=== PATIENT | male | born 1960 | race Caucasian/White ===

== ENCOUNTER 2021-02-24 16:53 | Inpatient (IN) | payer BC ==
[2021-02-24] MEDS ORDERED: cefTRIAXone 2 GM Vial IVPUSH ONE (17:07)
[2021-02-24] MEDS ORDERED: Sodium Chloride 0.9% 1,000 ML IV SCH ×2 (17:15→21:00)
[2021-02-24] MEDS ORDERED: Acetaminophen/HYDROcodone 325-5 MG Tab PO ONE (17:16)
--- NOTE | 2021-02-24 17:34 | EDM.PDOC ---
ED HPI GENERAL MEDICAL PROBLEM - General Chief Complaint: Fever Stated Complaint: WEAK Time Seen by Provider: 02/24/21 17:00 Source of Information: Reports: Patient History Limitations: Reports: No Limitations - History of Present Illness INITIAL COMMENTS - FREE TEXT/NARRATIVE: Pt. presents to ER with numerous complaints, including nausea, vomiting, diarrhea, fatigue, weakness and pain/erythema to R lower extremity. He is transported to ER via ambulance. 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 He lives in [place]. Pt. states that the GI symptoms started on Tuesday. He denies any melena, hematochezia, or hematemesis. Denies any abdominal pain, but complains of diffuse abdominal cramping. He has been chills, was noted to be febrile by EMS. Denies any cough, chest congestion, sore throat or rhinorrhea. Pt. states that he noticed he had discomfort in his R lower extremity, and is unable to walk without significant increase in discomfort. Pt. indicates that he is "healthy" and denies any PMH. 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 Onset: Today Onset Date: 02/24/21 Location: Reports: Abdomen, Generalized Right Leg Pain Score (Numeric/FACES): 7 - Related Data Allergies Allergy/AdvReac Type Severity Reaction Status Date / Time No Known Allergies Allergy Verified 02/24/21 17:07 Home Meds: Home Meds . [No Known Home Meds] 02/24/21 [History] Past Medical History - Past Surgical History Musculoskeletal Surgical History: Reports: Other (See Below) Other Musculoskeletal Surgeries/Procedures:: Right wrist surgery Social & Family History - Tobacco Use Tobacco Use Status *Q: Former Tobacco User Used Tobacco, but Quit: Yes Month/Year Tobacco Last Used: unsure ED ROS GENERAL - Review of Systems Review Of Systems: See Below Constitutional: Reports: Fever, Chills, Malaise, Weakness, Fatigue HEENT: Reports: No Symptoms Respiratory: Reports: No Symptoms. Denies: Shortness of Breath, Cough Cardiovascular: Reports: No Symptoms Endocrine: Reports: No Symptoms GI/Abdominal: Reports: Nausea, Vomiting : Reports: No Symptoms Musculoskeletal: Reports: No Symptoms Skin: Reports: Other (significant erythema to R lower extremity.) Neurological: Reports: No Symptoms Psychiatric: Reports: No Symptoms Hematologic/Lymphatic: Reports: No Symptoms Immunologic: Reports: No Symptoms ED EXAM, GENERAL - Physical Exam Exam: See Below Exam Limited By: No Limitations General Appearance: Alert, WD/WN, No Apparent Distress Throat/Mouth: Normal Lips, Normal Voice, No Airway Compromise Head: Atraumatic, Normocephalic Neck: Normal Inspection, Supple, Non-Tender, Full Range of Motion Respiratory/Chest: No Respiratory Distress, Lungs Clear, No Accessory Muscle Use, Chest Non-Tender Cardiovascular: Normal Peripheral Pulses, Regular Rate, Rhythm, No JVD, No Murmur Peripheral Pulses: 3+: Dorsalis Pedis (L), Dorsalis Pedis (R), 4+: Radial (L) GI/Abdominal: Normal Bowel Sounds, Soft, Non-Tender, No Distention, No Mass, Other (Male) Exam: Deferred Rectal (Males) Exam: Deferred Back Exam: Normal Inspection Extremities: Other (diffuse erythema noted to R lower extremity with minimal edema to the area) Neurological: Alert, Oriented, CN II-XII Intact, Normal Cognition, Normal Gait, Normal Reflexes, No Motor/Sensory Deficits Psychiatric: Normal Affect, Normal Mood Skin Exam: Warm, Dry, Intact Lymphatic: No Adenopathy #1 Interpretation Rhythm: NSR Jud: Normal P-Wave: Present QRS: Normal ST-T: Normal QT: Normal Course - Vital Signs Last Recorded V/S: Last Vital Signs Temp 37.9 C 02/24/21 17:00 Pulse 77 02/24/21 17:00 Resp 18 02/24/21 17:00 BP 111/46 L 02/24/21 19:40 Pulse Ox 96 02/24/21 19:40 - Orders/Labs/Meds Orders: Active Orders 24 hr Category Date Time Status CULTURE BLOOD [BC] Stat Lab 02/24/21 17:18 Received CULTURE BLOOD [BC] Stat Lab 02/24/21 17:23 Received LACTIC ACID [CHEM] Routine Lab 02/24/21 20:08 Received Sodium Chloride 0.9% [Normal Saline] 1,000 ml Med 02/24/21 17:15 Active IV ASDIRECTED Sodium Chloride 0.9% [Saline Flush] Med 02/24/21 17:01 Active 10 ml FLUSH ASDIRECTED PRN VANCOmycin 2 GM/400 ML 2 gm Med 02/24/21 19:57 Active Premix Bag 1 bag IV STAT Blood Culture x2 Reflex Set [OM.PC] Stat Oth 02/24/21 17:03 Ordered Peripheral IV Insertion Adult [OM.PC] Routine Oth 02/24/21 17:03 Ordered Medication Orders Enoxaparin Sodium (Enoxaparin 120 Mg/0.8 Ml Syringe) 120 mg SUBCUT Q12H BRIAN Last Admin: 02/24/21 20:27 Dose: 120 mg Documented by: BATACAR Sodium Chloride (Normal Saline) 1,000 mls @ 1,000 mls/hr IV ASDIRECTED BRIAN Last Admin: 02/24/21 17:42 Dose: 1,000 mls/hr Documented by: YASMINACAR Vancomycin HCl 2 gm/ Premix 400 mls @ 200 mls/hr IV STAT ONE Stop: 02/24/21 21:56 Last Admin: 02/24/21 20:16 Dose: 200 mls/hr Documented by: YASMINACAR Sodium Chloride (Sodium Chloride 0.9% 10 Ml Syringe) 10 ml FLUSH ASDIRECTED PRN PRN Reason: Keep Vein Open Labs: Laboratory Tests 02/24/21 02/24/21 02/24/21 Range/Units 17:18 17:18 17:18 WBC 11.6 H (4.0-10.0) x10^3/uL RBC 4.07 L (4.5-6.0) x10^6/uL Hgb 14.9 (14.0-18.0) g/dL Hct 41.5 (40.0-52.0) % MCV 102.0 H (78.0-93.0) fL MCH 36.6 H (26.0-32.0) pg MCHC 35.9 (32.0-36.0) g/dL RDW Coeff of Mitzi 13.8 (10.0-15.0) % Plt Count 109 L (130-400) x10^3/uL Immature Gran % (Auto) 1.40 H (0.00-0.43) % Neut % (Auto) 84.0 H (50.0-80.0) % Lymph % (Auto) 5.8 L (25.0-50.0) % [place] % (Auto) 8.7 (2.0-11.0) % Eos % (Auto) 0.0 (0.0-4.0) % Baso % (Auto) 0.1 L (0.2-1.2) % Neut # (Auto) 9.7 H (1.8-7.7) x10^3/uL Lymph # (Auto) 0.7 L (1.0-4.8) x10^3/uL [place] # (Auto) 1.0 H (0.0-0.8) x10^3/uL Eos # (Auto) 0.0 (0.0-0.5) x10^3/uL Baso # (Auto) 0.0 (0.0-0.2) x10^3/uL Immature Gran # (Auto) 0.16 H (0.00-0.07) x10^3/uL PT 14.1 H (9.9-12.5) SEC INR 1.3 L (2.0-3.5) APTT (25.6-32.8) SEC D-Dimer, Quantitative (<=0.58) mg/LFEU Sodium 134 L (136-145) mmol/L Potassium 3.2 L (3.5-5.1) mmol/L Chloride 98 (98-107) mmol/L Carbon Dioxide 25 (21-32) mmol/L Anion Gap 14.2 (5-15) mmol/L BUN 16 (7-18) mg/dL Creatinine 1.1 (0.70-1.30) mg/dL Est Cr Clr Drug Dosing 80.71 mL/min Estimated GFR (MDRD) > 60 Glucose 138 H (70-99) mg/dL Lactic Acid (0.4-2.0) mmol/L Calcium 8.4 L (8.5-10.1) mg/dL Corrected Calcium 9.5 (8.5-10.1) mg/dL Phosphorus 2.5 L (2.6-4.7) mg/dL Magnesium 2.3 (1.8-2.4) mg/dL Total Bilirubin 3.3 H (0.2-1.0) mg/dL AST 192 H (15-37) U/L ALT 93 H (16-63) U/L Alkaline Phosphatase 94 (46-116) U/L Troponin I High Sens 37 (<=76) ng/L C-Reactive Protein 46.5 H (<=0.9) mg/dL NT-Pro-B Natriuret Pep 1146 H (<=125) pg/mL Total Protein 7.1 (6.4-8.2) g/dL Albumin 2.6 L (3.4-5.0) g/dL Globulin 4.5 Albumin/Globulin Ratio 0.58 Urine Color (YELLOW) Urine Appearance (CLEAR) Urine pH (5.0-8.0) Ur Specific [place] Urine Protein (NEGATIVE) mg/dL Urine Glucose (UA) (NEGATIVE) mg/dL Urine Ketones (NEGATIVE) mg/dL Urine Occult Blood (NEGATIVE) Urine Nitrite (NEGATIVE) Urine Bilirubin (NEGATIVE) Urine Urobilinogen (0.2) EU/dL Ur Leukocyte Esterase (NEGATIVE) Urine RBC (NOT SEEN) /HPF Urine WBC (NOT SEEN) /HPF Ur Squamous Epith Cells (NOT SEEN) /HPF Urine Bacteria (NOT SEEN) /HPF Urine Mucus (NOT SEEN) /LPF Ethyl Alcohol < 3 (0-3) mg/dL SARS CoV-2 RNA Rapid CARINE (NEGATIVE) 02/24/21 02/24/21 02/24/21 Range/Units 17:18 17:18 17:18 WBC (4.0-10.0) x10^3/uL RBC (4.5-6.0) x10^6/uL Hgb (14.0-18.0) g/dL Hct (40.0-52.0) % MCV (78.0-93.0) fL MCH (26.0-32.0) pg MCHC (32.0-36.0) g/dL RDW Coeff of Mitzi (10.0-15.0) % Plt Count (130-400) x10^3/uL Immature Gran % (Auto) (0.00-0.43) % Neut % (Auto) (50.0-80.0) % Lymph % (Auto) (25.0-50.0) % [place] % (Auto) (2.0-11.0) % Eos % (Auto) (0.0-4.0) % Baso % (Auto) (0.2-1.2) % Neut # (Auto) (1.8-7.7) x10^3/uL Lymph # (Auto) (1.0-4.8) x10^3/uL [place] # (Auto) (0.0-0.8) x10^3/uL Eos # (Auto) (0.0-0.5) x10^3/uL Baso # (Auto) (0.0-0.2) x10^3/uL Immature Gran # (Auto) (0.00-0.07) x10^3/uL PT (9.9-12.5) SEC INR (2.0-3.5) APTT 27.6 (25.6-32.8) SEC D-Dimer, Quantitative 2.83 H (<=0.58) mg/LFEU Sodium (136-145) mmol/L Potassium (3.5-5.1) mmol/L Chloride (98-107) mmol/L Carbon Dioxide (21-32) mmol/L Anion Gap (5-15) mmol/L BUN (7-18) mg/dL Creatinine (0.70-1.30) mg/dL Est Cr Clr Drug Dosing mL/min Estimated GFR (MDRD) Glucose (70-99) mg/dL Lactic Acid 2.8 H* (0.4-2.0) mmol/L Calcium (8.5-10.1) mg/dL Corrected Calcium (8.5-10.1) mg/dL Phosphorus (2.6-4.7) mg/dL Magnesium (1.8-2.4) mg/dL Total Bilirubin (0.2-1.0) mg/dL AST (15-37) U/L ALT (16-63) U/L Alkaline Phosphatase (46-116) U/L Troponin I High Sens (<=76) ng/L C-Reactive Protein (<=0.9) mg/dL NT-Pro-B Natriuret Pep (<=125) pg/mL Total Protein (6.4-8.2) g/dL Albumin (3.4-5.0) g/dL Globulin Albumin/Globulin Ratio Urine Color (YELLOW) Urine Appearance (CLEAR) Urine pH (5.0-8.0) Ur Specific [place] Urine Protein (NEGATIVE) mg/dL Urine Glucose (UA) (NEGATIVE) mg/dL Urine Ketones (NEGATIVE) mg/dL Urine Occult Blood (NEGATIVE) Urine Nitrite (NEGATIVE) Urine Bilirubin (NEGATIVE) Urine Urobilinogen (0.2) EU/dL Ur Leukocyte Esterase (NEGATIVE) Urine RBC (NOT SEEN) /HPF Urine WBC (NOT SEEN) /HPF Ur Squamous Epith Cells (NOT SEEN) /HPF Urine Bacteria (NOT SEEN) /HPF Urine Mucus (NOT SEEN) /LPF Ethyl Alcohol (0-3) mg/dL SARS CoV-2 RNA Rapid CARINE (NEGATIVE) 02/24/21 02/24/21 Range/Units 17:23 18:18 WBC (4.0-10.0) x10^3/uL RBC (4.5-6.0) x10^6/uL Hgb (14.0-18.0) g/dL Hct (40.0-52.0) % MCV (78.0-93.0) fL MCH (26.0-32.0) pg MCHC (32.0-36.0) g/dL RDW Coeff of Mitzi (10.0-15.0) % Plt Count (130-400) x10^3/uL Immature Gran % (Auto) (0.00-0.43) % Neut % (Auto) (50.0-80.0) % Lymph % (Auto) (25.0-50.0) % [place] % (Auto) (2.0-11.0) % Eos % (Auto) (0.0-4.0) % Baso % (Auto) (0.2-1.2) % Neut # (Auto) (1.8-7.7) x10^3/uL Lymph # (Auto) (1.0-4.8) x10^3/uL [place] # (Auto) (0.0-0.8) x10^3/uL Eos # (Auto) (0.0-0.5) x10^3/uL Baso # (Auto) (0.0-0.2) x10^3/uL Immature Gran # (Auto) (0.00-0.07) x10^3/uL PT (9.9-12.5) SEC INR (2.0-3.5) APTT (25.6-32.8) SEC D-Dimer, Quantitative (<=0.58) mg/LFEU Sodium (136-145) mmol/L Potassium (3.5-5.1) mmol/L Chloride (98-107) mmol/L Carbon Dioxide (21-32) mmol/L Anion Gap (5-15) mmol/L BUN (7-18) mg/dL Creatinine (0.70-1.30) mg/dL Est Cr Clr Drug Dosing mL/min Estimated GFR (MDRD) Glucose (70-99) mg/dL Lactic Acid (0.4-2.0) mmol/L Calcium (8.5-10.1) mg/dL Corrected Calcium (8.5-10.1) mg/dL Phosphorus (2.6-4.7) mg/dL Magnesium (1.8-2.4) mg/dL Total Bilirubin (0.2-1.0) mg/dL AST (15-37) U/L ALT (16-63) U/L Alkaline Phosphatase (46-116) U/L Troponin I High Sens (<=76) ng/L C-Reactive Protein (<=0.9) mg/dL NT-Pro-B Natriuret Pep (<=125) pg/mL Total Protein (6.4-8.2) g/dL Albumin (3.4-5.0) g/dL Globulin Albumin/Globulin Ratio Urine Color Yellow (YELLOW) Urine Appearance Clear (CLEAR) Urine pH 6.5 (5.0-8.0) Ur Specific [place] 1.010 Urine Protein 30 H (NEGATIVE) mg/dL Urine Glucose (UA) Negative (NEGATIVE) mg/dL Urine Ketones Trace H (NEGATIVE) mg/dL Urine Occult Blood Large H (NEGATIVE) Urine Nitrite Negative (NEGATIVE) Urine Bilirubin Small H (NEGATIVE) Urine Urobilinogen 4.0 H (0.2) EU/dL Ur Leukocyte Esterase Negative (NEGATIVE) Urine RBC 5-10 H (NOT SEEN) /HPF Urine WBC 0-5 (NOT SEEN) /HPF Ur Squamous Epith Cells Not seen (NOT SEEN) /HPF Urine Bacteria Rare (NOT SEEN) /HPF Urine Mucus Rare H (NOT SEEN) /LPF Ethyl Alcohol (0-3) mg/dL SARS CoV-2 RNA Rapid CARINE Negative (NEGATIVE) Meds: Medications Generic Name Dose Route Start Last Admin Trade Name Freq PRN Reason Stop Dose Admin Enoxaparin Sodium 120 mg 02/24/21 20:30 12/07/21 20:27 Enoxaparin 120 Mg/0.8 Ml Syringe SUBCUT 120 mg Q12H BRIAN Administration Sodium Chloride 1,000 mls @ 1,000 mls/hr 02/24/21 17:15 02/24/21 17:42 Normal Saline IV 1,000 mls/hr ASDIRECTED BRIAN Administration Vancomycin HCl 2 gm/ Premix 400 mls @ 200 mls/hr 02/24/21 19:57 02/24/21 20:16 IV 02/24/21 21:56 200 mls/hr STAT ONE Administration Sodium Chloride 10 ml 02/24/21 17:01 Sodium Chloride 0.9% 10 Ml Syringe FLUSH ASDIRECTED PRN Keep Vein Open Discontinued Medications Generic Name Dose Route Start Last Admin Trade Name Freq PRN Reason Stop Dose Admin Hydrocodone Bitart/Acetaminophen 1 tab 02/24/21 17:16 02/24/21 17:41 Acetaminophen/Hydrocodone 325-5 Mg Tab PO 02/24/21 17:17 1 tab ONETIME ONE Administration Ceftriaxone Sodium 2 gm 02/24/21 17:07 02/24/21 17:42 Ceftriaxone 2 Gm Vial IVPUSH 02/24/21 17:08 2 gm STAT ONE Administration Iopamidol 100 ml 02/24/21 19:16 02/24/21 19:54 Iopamidol 612 Mg/Ml 100 Ml Bottle IVPUSH 02/24/21 19:17 100 ml ONETIME ONE Administration - Radiology Interpretation Free Text/Narrative:: Chest x-ray reveals cardiomegaly, diffuse interstitial opacification of unknown etiology. Significant dilated bowel loops noted on plain films. CT abd. and pelvis with contrast was ordered, but no IV contrast was noted in the exam. Moderate ileus noted. No obvious bowel obstruction. 4.5 cm AAA noted. Chronic liver disease. No free air. - Re-Assessments/Exams Free Text/Narrative Re-Assessment/Exam: IV access was established. He was given a liter of normal saline and started on IV rocephin 2 gm IV. Pt. was also started on vancomycin 2gm twice daily. Pharmacy will assist with dosing. Pt. did have a positive d dimer and was started on SQ lovenox 120mg twice daily. Departure - Departure Time of Disposition: 08:38 Disposition: Refer to Observation Clinical Impression: Cellulitis, Ileus, Sepsis, Elevated d-dimer - Discharge Information Sepsis Event Note (ED) - Evaluation Sepsis Screening Result: No Definite Risk - Focused Exam Vital Signs: Vital Signs Temp Pulse Resp BP Pulse Ox 02/24/21 19:40 111/46 L 96 02/24/21 19:30 99/40 L 02/24/21 19:00 104/47 L 02/24/21 18:30 108/51 L 02/24/21 17:33 111/46 L 02/24/21 17:00 37.9 C 77 18 120/53 L 97 - Problem List Review Problem List Initiated/Reviewed/Updated: Yes - My Orders Last 24 Hours: My Active Orders 02/24/21 17:01 Sodium Chloride 0.9% [Saline Flush] 10 ml FLUSH ASDIRECTED PRN 02/24/21 17:03 Blood Culture x2 Reflex Set [OM.PC] Stat Peripheral IV Insertion Adult [OM.PC] Routine 02/24/21 17:15 Sodium Chloride 0.9% [Normal Saline] 1,000 ml IV ASDIRECTED 02/24/21 17:18 CULTURE BLOOD [BC] Stat 02/24/21 17:23 CULTURE BLOOD [BC] Stat 02/24/21 19:57 VANCOmycin 2 GM/400 ML 2 gm Premix Bag 1 bag IV STAT 02/24/21 20:08 LACTIC ACID [CHEM] Routine - Assessment/Plan Last 24 Hours: My Active Orders 02/24/21 17:01 Sodium Chloride 0.9% [Saline Flush] 10 ml FLUSH ASDIRECTED PRN 02/24/21 17:03 Blood Culture x2 Reflex Set [OM.PC] Stat Peripheral IV Insertion Adult [OM.PC] Routine 02/24/21 17:15 Sodium Chloride 0.9% [Normal Saline] 1,000 ml IV ASDIRECTED 02/24/21 17:18 CULTURE BLOOD [BC] Stat 02/24/21 17:23 CULTURE BLOOD [BC] Stat 02/24/21 19:57 VANCOmycin 2 GM/400 ML 2 gm Premix Bag 1 bag IV STAT 02/24/21 20:08 LACTIC ACID [CHEM] Routine Plan: Pt. will be admitted observation. He is a code 1. He has no assigned healthcare provider locally. Pt. was covered for cellulitis with IV rocephin and vancomycin. Will continue fluids at 125ml/hr after initial liter. Lactic acid will be trended. Pt. will be started on Lovenox at 120mg twice daily pending duplex US of R lower extremity. PT and OT to see tomorrow. Pt. will be kept NPO due to ileus. IV reglan will be started every 6 hours to encourage peristalsis and help with nausea/vomiting. Repeat labs consisting of CBC, BMP, lactic acid, and coags will be repeated in AM.
[2021-02-24 17:56] LABS: CHLORIDE,CL 98 mmol/L (98-107); SODIUM,NA 134 mmol/L (136-145)
[2021-02-24 18:04] LABS: ANION GAP 14.2 mmol/L (5-15)
--- NOTE | 2021-02-24 19:14 | CR ---
[id number] RAD/RAD Chest PA or AP 1V EXAM: SINGLE VIEW CHEST. INDICATION: FEVER AND WEAKNESS COMPARISON: NO PREVIOUS SIMILAR EXAM IS AVAILABLE FINDINGS: A faint bilateral interstitial pattern is seen The mediastinum is wide The cardiac silhouette is enlarged The thoracic aorta is tortuous There are old left rib fractures IMPRESSION: FAINT INTERSTITIAL PATTERN EITHER EDEMA, FIBROSIS, OR PNEUMONIA Lucian Pineda MD 02/24/21 [id number] Thank you for allowing us to participate in the care of your patient.
--- NOTE | 2021-02-24 19:16 | CR ---
[id number] RAD/RAD Abd Flat and Upright 2V Exam: RAD Abd Flat and Upright 2V Clinical Data: ABDOMINAL PAIN COMPARISON: NO PREVIOUS SIMILAR EXAM IS AVAILABLE FINDINGS: There is a moderate ileus There is no free air There is no organomegaly or pathologic calcification Consider further studies if needed IMPRESSION: MODERATE ILEUS Lucian Pineda MD 02/24/21 [id number] Thank you for allowing us to participate in the care of your patient.
[2021-02-24] MEDS: Iopamidol 612 MG/ML 100 ML Bottle IVPUSH ONE ×2 (19:54→20:32)
[2021-02-24] MEDS ORDERED: VANCOmycin 2 GM/400 ML 2 GM in Premix Bag 1 BAG IV ONE (19:57)
--- NOTE | 2021-02-24 20:14 | CT ---
[id number] CT/CT Abdomen Pelvis W IV EXAM: CT Abdomen Pelvis W IV CLINICAL DATA: ABDOMINAL PAIN COMPARISON: No previous similar exam is available. FINDINGS: There is mild bowel distention There is no bowel obstruction There is a 4.5 cm infrarenal abdominal aortic aneurysm The patient has splenomegaly. The gallbladder is not distended There is no ascites There is no free air There appears to be chronic liver disease IV conscious is not seen. The pancreas shows no obvious abnormality There is no hydronephrosis or obvious renal mass There is minimal right-sided nephrolithiasis. The pelvis shows no mass or adenopathy. The appendix is not seen. There is no evidence of appendicitis IMPRESSION: NO BOWEL OBSTRUCTION MILD ILEUS 4.5 CM INFRARENAL ABDOMINAL AORTIC ANEURYSM NO IV CONTRAST SEEN CHRONIC LIVER DISEASE MILD SPLENOMEGALY Lucian Pineda MD 02/24/212012 Thank you for allowing us to participate in the care of your patient.
[2021-02-24] MEDS: Enoxaparin 120 MG/0.8 ML Syringe SUBCUT SCH (20:27)
[2021-02-24] MEDS ORDERED: Metoclopramide 10 MG/2 ML SDV IVPUSH PRN (20:55)
[2021-02-24] MEDS: Sodium Chloride 0.9% with KCl 1,000 ML IV SCH (23:04)
[2021-02-25] MEDS: Morphine 4 MG/ML Syringe IVPUSH PRN ×5 (02:31→22:42)
[2021-02-25] MEDS: Sodium Chloride 0.9% 10 ML Syringe FLUSH PRN ×3 (02:39→22:49)
[2021-02-25 07:08] LABS: PTT,PARTIAL THROMBOPLSTIN TIME 30.3 SEC (25.6-32.8)
[2021-02-25] MEDS: Sodium Chloride 0.9% with KCl 1,000 ML IV SCH ×2 (07:11→16:28)
[2021-02-25 07:13] LABS: ANION GAP 12.3 mmol/L (5-15); CHLORIDE,CL 106 mmol/L (98-107); SODIUM,NA 140 mmol/L (136-145)
[2021-02-25] MEDS: Enoxaparin 120 MG/0.8 ML Syringe SUBCUT SCH ×2 (08:01→20:23)
[2021-02-25] MEDS ORDERED: VANCOmycin 2 GM/400 ML 2 GM in Premix Bag 1 BAG IV ONE (09:00)
[2021-02-25] MEDS: cefTRIAXone 2 GM Vial IVPUSH SCH (16:28)
[2021-02-25] MEDS: VANCOmycin 2 GM/400 ML 2 GM in Premix Bag 1 BAG IV SCH (20:23)
[2021-02-25] MEDS: Acetaminophen/HYDROcodone 325-10 MG Tab PO SCH ×2 (20:23→23:05)
[2021-02-26] MEDS: Acetaminophen/HYDROcodone 325-10 MG Tab PO SCH ×5 (01:55→18:14)
[2021-02-26] MEDS: Sodium Chloride 0.9% with KCl 1,000 ML IV SCH ×2 (04:30→18:11)
[2021-02-26] MEDS ORDERED: Potassium Chloride 20 MEQ Tab.ER PO ONE (07:55)
[2021-02-26] MEDS ORDERED: Iopamidol 612 MG/ML 100 ML Bottle IVPUSH ONE (08:53)
[2021-02-26] MEDS: cefTRIAXone 2 GM Vial IVPUSH SCH (10:01)
[2021-02-26] MEDS: Enoxaparin 120 MG/0.8 ML Syringe SUBCUT SCH ×2 (10:01→19:56)
[2021-02-26] MEDS: VANCOmycin 2 GM/400 ML 2 GM in Premix Bag 1 BAG IV SCH (10:10)
--- NOTE | 2021-02-26 10:18 | CT ---
[id number] CT/CT Chest Abdomen Pelvis W IV EXAM: CHEST ABDOMEN AND PELVIS CT WITH CONTRAST INDICATION: Abdominal pain, shortness of breath, hematuria, and abdominal aneurysm. COMPARISON: Pelvis exam February 24, 2021. DISCUSSION: Mild cardiomegaly. Atherosclerotic plaque in the thoracic aorta and its major branches including the coronary arteries. Mild linear scarring or atelectasis in the imaged lung bases. Mild peripheral reticulation. No acute infiltrates are identified. No pleural or pericardial effusion. No thoracic adenopathy. The liver has a nodular contour and hypertrophy of the caudate lobe compatible with cirrhosis. Associated portal hypertension with varices extending into the esophageal hiatus, and scattered throughout the abdomen and pelvis. There is moderate splenomegaly which is unchanged. Small volume ascites and mild mesenteric edema. The mesenteric edema and ascites are new relative to yesterday's study. Disc degeneration L5-S1. Possible cholelithiasis. No CT evidence of acute cholecystitis. Ultrasound or HIDA scan could provide further evaluation. 44 mm bilobed fusiform infrarenal abdominal aortic aneurysm. 15 mm cyst upper pole left kidney. Scattered diverticula of the colon without evidence of diverticulitis. The pancreas, adrenal glands, right kidney, small bowel, and the appendix are unremarkable. No free air or adenopathy. IMPRESSION: 1. Sequela of cirrhosis with portal hypertension. Interval development of mild ascites and mesenteric edema likely relating to the underlying liver disease. 2. Possible cholelithiasis without CT evidence of acute cholecystitis. Ultrasound could further evaluate. 3. 44 mm infrarenal abdominal aortic aneurysm without interval change. Sreedhar Cabezas MD 02/26/21 [id number] Thank you for allowing us to participate in the care of your patient.
[2021-02-26] MEDS ORDERED: Ondansetron 4 MG/2 ML SDV IVPUSH PRN (19:34)
[2021-02-26] MEDS: Furosemide 20 MG Tab PO SCH (19:58)
[2021-02-26] MEDS: VANCOmycin 1.75 GM/350 ML 1.75 GM in Premix Bag 1 BAG IV SCH (19:58)
[2021-02-26] MEDS: traMADol 50 MG Tab PO PRN (20:11)
--- NOTE | 2021-02-26 20:54 | HP ---
CHIEF COMPLAINT: 1. Fever. 2. Weakness. HISTORY OF PRESENT ILLNESS: A 60-year-old male patient presented to the emergency room at [facility] on 02/24/2021 with a chief complaint of fever and weakness. The patient had other complaints of nausea, vomiting, diarrhea, fatigue, and pain and erythema to the right lower extremity. He was transferred to the ER via ambulance. 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 The patient states that the GI symptoms started last Tuesday. He denies any melena, hematochezia, or hematemesis. The patient denies any abdominal pain, but does complain of abdominal cramping. The patient has had on and off chills. The patient was noted to be febrile by EMS crew. He does not have any cough. No shortness of breath. The patient denies any chest pain or palpitations. The patient states that he noticed the discomfort in his right lower extremity and is unable to walk without pain and discomfort. The patient indicates that he is healthy and denies any past medical history. 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 The patient denies any headaches, dizziness, or lightheadedness today. He denies any cough or shortness of breath. No chest pain or palpitations. He does have some bilateral lower extremity edema. The patient has diffuse abdominal discomfort. He has not felt nauseated and no vomiting. The patient denies any diarrhea. The patient initially had fevers and chills, but that has resolved today. No skin complaints outside of the right lower extremity erythema, redness, and warmth. PAST MEDICAL HISTORY: Denies. PAST SURGICAL HISTORY: Right wrist surgery. FAMILY HISTORY: Unknown. SOCIAL HISTORY: The patient is a former smoker. He states he quit several years ago. The patient is currently . 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 The patient states he usually does his health care at [facility] in [place] for DOT physicals only. The patient has not had any physical or formal workup as part of a regular health routine and preventative maintenance. CODE STATUS: Full code. LABORATORY STUDIES: 1. CBC: White blood cell count 11.6, hemoglobin 14.9, hematocrit 41.5, platelets 109,000. 2. PT 14.1, INR 1.3, PTT 27.6. 3. D-dimer 2.83. 4. CMP: Sodium 134, potassium 3.2, chloride 98, CO2 of 25, anion gap 14.2, BUN 16, creatinine 1.1, GFR greater than 60, glucose 138, calcium 8.4, AST 192, ALT 93, alkaline phosphatase 94, total protein 7.1, albumin 2.6. 5. Procalcitonin 8.61. 6. Lactic acid 2.8. 7. C-reactive protein 46.5. 8. BNP 1146. MEDICATIONS: No home medications. REVIEW OF SYSTEMS: See HPI. PHYSICAL EXAMINATION: Vital Signs: Weight 179.3 pounds, height 6 feet 1 inch. Temperature 98.1, pulse 71, blood pressure 116/64, respiratory rate 20, oxygen saturation 95% on room air. Skin: Intact. Cellulitis of the right lower extremity with warmth, erythema, redness. Skin is intact over this area, tender to palpation, no drainage. Respiratory: Lungs are decreased, but clear throughout. Cardiovascular: Regular rate and rhythm, no murmur. Abdomen: Obese, hypoactive bowel sounds, soft, generalized tenderness. Extremities: +2 dependent pitting edema to right lower extremity only. Neurological: The patient is alert. The patient is oriented to person, place, and time. No focal neurological deficits. ASSESSMENT: 1. Sepsis secondary to right lower extremity cellulitis. 2. Right lower extremity cellulitis. 3. Liver cirrhosis. 4. Hepatic portal hypertension. 5. Ascites. 6. Cholelithiasis without CT evidence of acute cholecystitis. 7. Infrarenal abdominal aortic aneurysm, 44 mm. 8. Morbid obesity. PLAN: A 60-year-old male patient with no past medical history, will be changed to acute status today. The patient is admitted to [facility] for the above diagnoses. Continue the patient on vancomycin and Rocephin for cellulitis. We will continue the patient on Lovenox for DVT prophylaxis. Start the patient on furosemide 20 mg daily for ascites. Discontinue hydrocodone/acetaminophen secondary to liver cirrhosis. No NSAIDs. No Tylenol. Sodium restricted diet. We will add tramadol p.o. for pain. Potassium chloride 40 mEq p.o. today. We will discontinue Reglan and start the patient on Zofran for nausea. The patient is a full code. The patient does wish to transfer to a higher level of care should the need arise. The patient does need an ultrasound of the right lower extremity; however, ultrasound is not available in our facility at this time. We will consult Physical Therapy secondary to ambulation problems with having cellulitis of the right lower extremity. The patient and his were updated on the plan of care today. Recheck laboratory work tomorrow. This patient was seen and examined by me as an [facility] provider. TB: 02/26/2021 19:32:47 MODL: 02/26/2021 20:49:04 /[id number]
[2021-02-26] MEDS: Morphine 4 MG/ML Syringe IVPUSH PRN (22:42)
[2021-02-26] MEDS: Sodium Chloride 0.9% 10 ML Syringe FLUSH PRN (22:49)
[2021-02-27] MEDS: VANCOmycin 1.75 GM/350 ML 1.75 GM in Premix Bag 1 BAG IV SCH ×3 (03:09→20:01)
[2021-02-27] MEDS: Sodium Chloride 0.9% with KCl 1,000 ML IV SCH ×2 (05:02→11:30)
[2021-02-27 07:26] LABS: CHLORIDE,CL 105 mmol/L (98-107); SODIUM,NA 138 mmol/L (136-145)
[2021-02-27] MEDS: Enoxaparin 120 MG/0.8 ML Syringe SUBCUT SCH ×2 (07:36→20:01)
[2021-02-27] MEDS: Furosemide 20 MG Tab PO SCH (07:37)
[2021-02-27] MEDS: cefTRIAXone 2 GM Vial IVPUSH SCH (07:37)
[2021-02-27 07:38] LABS: ANION GAP 11.9 mmol/L (5-15)
[2021-02-27] MEDS: traMADol 50 MG Tab PO PRN ×2 (07:39→18:40)
--- NOTE | 2021-02-27 22:07 | PN ---
Progress Note for YULIYA ABRAHAM Date: 02/27/2021 Room #: VM.218 CHIEF COMPLAINT: 1. Fever. 2. Weakness. SUBJECTIVE: Hospital day #2 on a 60-year-old male patient, who was admitted to the acute care floor at [facility] yesterday for right lower extremity cellulitis. The patient is on Rocephin and vancomycin. Symptoms seem to be improving. The patient has not had any headache, dizziness, or lightheadedness. Edema in the right lower extremity has remained the same. No cough or shortness of breath. No chest pain or palpitations. Skin has remained intact. No fevers or chills. The patient offers no complaints this morning. REVIEW OF SYSTEMS: See HPI. PHYSICAL EXAMINATION: Vital Signs: Height 6 feet 1 inch, weight 278.3 pounds, temperature 98.7, pulse 75, blood pressure 108/54, respiratory rate 18, oxygen saturation 96% on room air. Skin: Improving erythema, redness, and warmth of the right lower extremity. Skin is intact. Skin is dry. Respiratory: Lungs are decreased, but clear throughout. Cardiovascular: Regular rate and rhythm, no murmur. Abdomen: Diffusely tender throughout. Bowel sounds are hypoactive x4. Abdomen is soft. Extremities: +2 pitting edema, right lower extremity. Neurological: The patient is alert. The patient is oriented to person, place, and time. LABORATORY STUDIES: 1. CBC: White blood cell count 6.3, hemoglobin 13.5, hematocrit 38.9, platelets 123,000. 2. CMP: Sodium 138, potassium 3.9, chloride 105, CO2 of 25, anion gap 11.9, BUN 11, creatinine 0.7, GFR greater than 60, glucose 108, calcium 8.0, AST 185, ALT 111, alkaline phosphatase 144, albumin 2.1. 3. Procalcitonin 3.02. 4. Lactic acid 1.2. 5. CRP 27.4. ASSESSMENT: 1. Sepsis secondary to right lower extremity cellulitis. 2. Right lower extremity cellulitis. 3. Liver cirrhosis. 4. Hepatic portal hypertension. 5. Ascites. 6. Cholelithiasis without CT evidence of acute cholecystitis. 7. Infrarenal abdominal aortic aneurysm, 44 mm. 8. Morbid obesity. PLAN: Hospital day #2 for a 60-year-old male patient with no past medical history, admitted for the above diagnoses. Continue with current IV antibiotics. Continue all other medications the same. We will continue on Lasix for the ascites. The patient does need to get up out of bed and ambulate. Continue on Lovenox. Recheck laboratory work tomorrow morning. The patient states he feels a little bit better today. No-sodium diet. This patient was seen and examined by me as an [facility] provider. Total time of care and coordination, greater than 30 minutes. TB: 02/27/2021 17:25:01 MODL: 02/27/2021 21:58:52 /[id number]
[2021-02-28] MEDS: Sodium Chloride 0.9% with KCl 1,000 ML IV SCH ×3 (00:23→19:04)
[2021-02-28] MEDS: traMADol 50 MG Tab PO PRN ×2 (03:23→18:46)
[2021-02-28] MEDS: VANCOmycin 1.75 GM/350 ML 1.75 GM in Premix Bag 1 BAG IV SCH ×3 (03:28→20:00)
[2021-02-28] MEDS: Furosemide 20 MG Tab PO SCH (07:46)
[2021-02-28] MEDS: Enoxaparin 120 MG/0.8 ML Syringe SUBCUT SCH ×2 (07:46→19:49)
[2021-02-28] MEDS: cefTRIAXone 2 GM Vial IVPUSH SCH (07:47)
[2021-02-28] MEDS: Sodium Chloride 0.9% 10 ML Syringe FLUSH PRN (07:47)
[2021-02-28 08:29] LABS: CHLORIDE,CL 105 mmol/L (98-107); SODIUM,NA 139 mmol/L (136-145)
[2021-02-28 08:33] LABS: ANION GAP 15.1 mmol/L (5-15)
--- NOTE | 2021-02-28 12:13 | PN ---
Progress Note for YULIYA ABRAHAM Date: 02/28/2021 Room #: VM.218 CHIEF COMPLAINT: 1. Fever. 2. Weakness. SUBJECTIVE: Hospital day #3 on a 60-year-old male patient who was admitted to the acute care floor at [facility] for right lower extremity cellulitis. The patient will continue on Rocephin and vancomycin. His cellulitis is improving, however, his liver enzymes are continuing to go up. The patient states he has not had any headaches, dizziness, or lightheadedness. His right lower extremity pain is improving. The patient is diuresing well, being on IV Lasix. No chest pain or palpitations. The patient denies any shortness of breath or cough. No skin concerns. No fevers or chills the patient is aware of. REVIEW OF SYSTEMS: See HPI. PHYSICAL EXAMINATION: Vital Signs: Weight 272 pounds, temperature 98.4, pulse 75, blood pressure 121/55, respiratory rate 20, oxygen saturation 97% on room air. Skin: Right lower extremity cellulitis is improving, less erythema, nontender. Respiratory: Lungs are decreased, but clear throughout. Cardiovascular: Regular rate and rhythm, no murmur. Abdomen: Diffusely tender throughout. Bowel sounds are hypoactive x4. Abdomen is soft. Extremities: +2 pitting edema, right lower extremity, dependent. Neurological: The patient is alert. The patient is oriented to person, place, and time. LABORATORY STUDIES: 1. CBC: White blood cell count 6.6, hemoglobin 14.2, hematocrit 41.2, platelets 133,000. 2. CMP: Sodium 139, potassium 4.1, chloride 105, CO2 of 23, anion gap 15.1, BUN 9, creatinine 0.7, GFR greater than 60, glucose 122, calcium 8.2, AST 181, ALT 121, alkaline phosphatase 182, protein 6.5. ASSESSMENT: 1. Sepsis secondary to right lower extremity cellulitis, unknown organism. 2. Right lower extremity cellulitis. 3. Liver cirrhosis. 4. Hepatic portal hypertension. 5. Ascites. 6. Elevated liver enzymes. 7. Cholelithiasis without CT evidence of acute cholecystitis. 8. Infrarenal abdominal aortic aneurysm, 44 mm. 9. Morbid obesity. PLAN: Hospital day #3 on a 60-year-old male patient who was admitted to the acute care floor at [facility] for the above diagnoses. We will continue on Rocephin and vancomycin. Anticipate discharge on Tuesday if the patient continues to improve. Discussed with the patient today he needs to find a primary care provider to follow up on his chronic medical conditions. We will continue on Lovenox. We will try and get an ultrasound of the right lower extremity on Tuesday prior to the patient's discharge. The patient does need to get up out of bed and ambulate. This patient was seen and examined by me as an [facility] provider. Total time in care and coordination greater than 30 minutes. TB: 02/28/2021 10:24:08 MODL: 02/28/2021 11:01:33 /[id number]
[2021-03-01] MEDS: Morphine 4 MG/ML Syringe IVPUSH PRN ×2 (01:26→20:16)
[2021-03-01] MEDS: VANCOmycin 1.75 GM/350 ML 1.75 GM in Premix Bag 1 BAG IV SCH ×3 (04:01→20:19)
[2021-03-01] MEDS: Sodium Chloride 0.9% with KCl 1,000 ML IV SCH ×2 (08:19→17:38)
[2021-03-01] MEDS: Enoxaparin 120 MG/0.8 ML Syringe SUBCUT SCH ×2 (08:21→20:16)
[2021-03-01] MEDS: cefTRIAXone 2 GM Vial IVPUSH SCH (08:21)
[2021-03-01] MEDS: traMADol 50 MG Tab PO PRN ×2 (08:22→17:37)
[2021-03-01] MEDS: Furosemide 20 MG Tab PO SCH (08:22)
[2021-03-01] MEDS: Sodium Chloride 0.9% 10 ML Syringe FLUSH PRN (08:23)
[2021-03-01 08:28] LABS: CHLORIDE,CL 104 mmol/L (98-107); SODIUM,NA 137 mmol/L (136-145)
[2021-03-01 08:35] LABS: ANION GAP 13.3 mmol/L (5-15)
[2021-03-01] MEDS: Lactulose Soln 10 GM/15 ML 30 ML UD Cup PO SCH ×2 (10:26→20:15)
--- NOTE | 2021-03-01 10:37 | PN ---
Progress Note for YULIYA ABRAHAM Date: 03/01/2021 Room #: [id number] CHIEF COMPLAINT: 1. Fever. 2. Weakness. SUBJECTIVE: Hospital day #4 on a 60-year-old male patient who was admitted to the acute care floor at [facility] for right lower extremity cellulitis. The patient is currently on Rocephin and vancomycin. The swelling of the right lower extremity has improved. The patient has not had any dizziness, lightheadedness, or headaches. The patient denies any shortness of breath or cough. No chest pain or palpitations. No fevers or chills. No problems with the abdomen. The patient is diuresing well on the Lasix. REVIEW OF SYSTEMS: See HPI. PHYSICAL EXAMINATION: Vital Signs: Weight 266 pounds, temperature 98.5, pulse 72, blood pressure 118/69, respiratory rate 18, oxygen saturation 96%. Skin: Intact, warm, and dry. Respiratory: Lungs are decreased, but clear throughout. Cardiovascular: Regular rate and rhythm, no murmur. Abdomen: Tenderness is improving. Bowel sounds are hypoactive x4. Abdomen is soft. Extremities: +1 dependant pitting edema right lower extremity. Neurologic: The patient is alert. The patient is oriented to person, place, and time. LABORATORY STUDIES: 1. CBC: White blood cell count 7.9, hemoglobin 14.7, hematocrit 42.6, platelets 137,000. 2. CMP: Sodium 137, potassium 4.3, chloride 104, CO2 of 24, anion gap 13.3, BUN 9, creatinine 0.7, GFR greater than 60, glucose 113, calcium 8.1, total bilirubin 1.3, AST 177, ALT 139, alkaline phosphatase 195. 3. Ammonia 74. ASSESSMENT: 1. Sepsis secondary to right lower extremity cellulitis, unknown organism. 2. Right lower extremity cellulitis. 3. Liver cirrhosis. 4. Hepatic portal hypertension. 5. Ascites. 6. Elevated liver enzymes. 7. Cholelithiasis without CT evidence of acute cholecystitis. 8. Infrarenal abdominal aortic aneurysm, 44 mL. 9. Hyperammonemia. 10.Morbid obesity. PLAN: Hospital day #3 on a 60-year-old male patient who was admitted to the acute care floor at [facility] for the above diagnoses. Continue on Rocephin and vancomycin. Right lower extremity cellulitis is improving. The patient will be switched to p.o. antibiotics tomorrow. Start lactulose 4 times daily for hyperammonemia. We will continue this on discharge for additional 7 days. The patient needs to get up and move around in the room. Recheck ultrasound tomorrow of the right lower extremity to rule out deep vein thrombosis. Continue on Lovenox. If the deep vein thrombosis is positive, the patient will be started on Eliquis. If the ultrasound is negative, the patient will continue on Lasix for his ascites and lower extremity edema. Recheck laboratory work tomorrow. This patient was seen and examined by me as an [facility] provider. Total time for care and coordination, greater than 30 minutes. TB: 03/01/2021 10:16:02 MODL: 03/01/2021 10:33:52 /[id number]
[2021-03-02] MEDS: Sodium Chloride 0.9% with KCl 1,000 ML IV SCH (00:59)
[2021-03-02] MEDS: traMADol 50 MG Tab PO PRN (01:49)
[2021-03-02] MEDS: VANCOmycin 1.75 GM/350 ML 1.75 GM in Premix Bag 1 BAG IV SCH ×2 (04:02→12:54)
[2021-03-02 07:22] LABS: CHLORIDE,CL 103 mmol/L (98-107); SODIUM,NA 135 mmol/L (136-145)
[2021-03-02 07:23] LABS: ANION GAP 13.3 mmol/L (5-15)
[2021-03-02] MEDS: Lactulose Soln 10 GM/15 ML 30 ML UD Cup PO SCH ×2 (09:17→12:54)
[2021-03-02] MEDS: Enoxaparin 120 MG/0.8 ML Syringe SUBCUT SCH (09:17)
[2021-03-02] MEDS: Furosemide 20 MG Tab PO SCH (09:17)
[2021-03-02] MEDS: cefTRIAXone 2 GM Vial IVPUSH SCH (09:21)
--- NOTE | 2021-03-02 12:40 | DISCH ---
ADMITTING DIAGNOSES: 1. Sepsis secondary to right lower extremity cellulitis. 2. Right lower extremity cellulitis. 3. Morbid obesity. DISCHARGE DIAGNOSES: 1. Sepsis secondary to right lower extremity cellulitis. 2. Right lower extremity cellulitis. 3. Liver cirrhosis. 4. Hepatic portal hypertension. 5. Ascites. 6. Cholelithiasis without CT evidence of acute cholecystitis. 7. Infrarenal abdominal aortic aneurysm, 44 mm. 8. Morbid obesity. 9. Hyperammonemia. HISTORY OF PRESENT ILLNESS: The patient had presented to the emergency room at [facility] 2 days prior to his acute admission on 02/24/2021 for right lower extremity cellulitis. The patient had been admitted to observation, however, was changed to acute status due to needing a longer stay, IV antibiotics, and further workup. The patient essentially does not have any medical history. 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 BRIEF HOSPITAL COURSE: The patient did well during his stay. The patient remained hemodynamically stable and afebrile. CT scan of the abdomen revealed liver cirrhosis and ascites, therefore he was started on Lasix. The patient tolerated IV antibiotics without any problems. The patient diuresed nicely. Abdominal discomfort had improved. The patient's edema had also improved with the addition of Lasix. The patient did have an elevated ammonia level of 78, therefore he was started on lactulose. The patient did not have any issues with urination or bowel movements. CONSULTATIONS: Case Management for discharge planning. ACTIVITY: As tolerated. DIET: Heart-healthy. No sodium. DISCHARGE LABORATORY WORK: 1. CBC: White blood cell count 9.0, hemoglobin 14.4, hematocrit 41.6, platelet count 158,000. 2. CMP: Sodium 135, potassium 4.3, chloride 103, CO2 of 23, anion gap 13.3, BUN 8, creatinine 0.7, GFR greater than 60, glucose 120, calcium 8.0, AST 203, ALT 167, alkaline phosphatase 199, protein 6.9. DISCHARGE MEDICATIONS: 1. Cephalexin 500 mg p.o. 3 times daily x7 days. 2. Lasix 20 mg p.o. daily. 3. Lactulose 20 g p.o. 3 times daily x7 days. REVIEW OF SYSTEMS: Constitutional: Negative. Skin: Negative. Respiratory: Negative. Cardiac: Negative. Abdomen: Diffuse discomfort, otherwise no issues. Extremities: +1 dependent pitting edema of right lower extremity, improving. Neurological: Negative. PHYSICAL EXAMINATION: Vital Signs: Weight 260.1 pounds, temperature 98.8, pulse 80, blood pressure 104/50, respiratory rate 16, oxygen saturation 94% on room air. Skin: Right lower extremity cellulitis has greatly improved, there is slight redness. No warmth. Nontender. Respiratory: Lungs are decreased, but clear throughout. Cardiovascular: Regular rate and rhythm, no murmur. Abdomen: Generalized tenderness, bowel sounds are hypoactive x4, soft. Extremities: +1 dependent pitting edema, right lower extremity, improved. Neurological: The patient is alert. The patient is oriented to person, place, and time. ASSESSMENT: 1. Sepsis secondary to right lower extremity cellulitis, resolved. 2. Right lower extremity cellulitis, resolved. 3. Liver cirrhosis. 4. Hepatic portal hypertension. 5. Ascites. 6. Cholelithiasis without CT evidence of acute cholecystitis. 7. Infrarenal abdominal aortic aneurysm, 44 mm. 8. Morbid obesity. PLAN: A 60-year-old male patient with no past medical history, will be discharged home today. The patient will continue on Lasix for his edema and ascites. The patient will continue on lactulose for the next 7 days for elevated ammonia level. We will start the patient on cephalexin 3 times a day for the next week for continued antibiotic coverage of the cellulitis. The patient does have an ultrasound today of his right lower extremity. If there is no DVT, we would recommend aspirin 81 mg p.o. daily. If there is a DVT, the patient will be started on Eliquis. A long discussion was held with the patient that he needs to find a PCP in [place] to follow up with his liver cirrhosis and other chronic medical conditions. The patient was discharged from the hospital in stable condition. This patient was seen and examined by me as an [facility] provider. Total care and coordination time greater than 30 minutes. TB: 03/02/2021 07:58:30 MODL: 03/02/2021 12:13:51 /[id number]
== END 2021-03-02 13:15 | disposition home or self-care (01) | DRG 720 ==
LOC: VM.ED 16:53 → VM.MS 18:08 → UNDOADMOB 18:08 → VM.MS 18:46 → OBSVTOIN 02-26 07:39
PROVIDERS: ADMIT Physician Assistant; ATTEND Nurse Practitioner Family
DX: A41.9 Sepsis, unspecified organism (principal); L03.115 Cellulitis of right lower limb; K74.60 Unspecified cirrhosis of liver; K76.6 Portal hypertension; K80.20 Calculus of gallbladder without cholecystitis without obstruction; E66.01 Morbid (severe) obesity due to excess calories; Z68.34 Body mass index [BMI] 34.0-34.9, adult; I71.4 Abdominal aortic aneurysm, without rupture; Z20.822 Contact with and (suspected) exposure to COVID-19
CPT/HCPCS: 36415; 71045; 71260; 74019; 74177; 80053; 80202; 80307; 81001; 82140; 82977; 83605; 83690; 83735; 83880; 84100; 84145; 84484; 85025; 85027; 85379; 85610; 85730; 86140; 87040; 93005; 96365; 96375; 99285-25; A9270-GY; J0696; J1650; J2270; J2765; J3370; J3480; J7030; Q9967; U0002